=== PATIENT | male | born 1945 | race Caucasian/White ===

== ENCOUNTER 2021-11-22 13:09 | Inpatient (IN) | payer MEDICARE ==
[~2021-11-22] VITALS: Ht 170.2 cm; Wt 63.6 kg
[2021-11-22] MEDS ORDERED: CVS2500C PO (14:04)
[2021-11-22] MEDS ORDERED: MULT-90 PO (14:04)
[2021-11-22] MEDS ORDERED: LOSA100T45 PO (14:04)
[2021-11-22] MEDS ORDERED: DOXY-350 PO (14:04)
[2021-11-22] MEDS ORDERED: ECOT81TA5 PO (14:04)
[2021-11-22] MEDS ORDERED: D3 S20002 PO (14:04)
[2021-11-22 14:20] LABS: BASO % 0.2 % (0.0-1.0); EOS # 0.1 10^3/uL (0.0-0.5); EOS % 2.3 % (0.0-3.0); HEMATOCRIT 27.6 % (42.0-52.0); HEMOGLOBIN 10.2 g/dl (13.5-17.5); LYMPH # 1.2 10^3/uL (1.5-5.0); LYMPH % 27.5 % (24.0-44.0); MEAN CORPUSCULAR HEMOGLOBIN 39.4 pg (27.0-33.0); MEAN CORPUSCULAR VOLUME 106.6 fl (80.0-96.0); MONO # 0.7 10^3/uL (0.0-0.8); MONO % 15.1 % (2.0-8.0); NEUTROPHILS # 2.4 10^3/uL (1.5-8.5); NEUTROPHILS % 54.7 % (36.0-66.0); PLATELET COUNT, AUTOMATED 110 10^3/uL (150-450); RED BLOOD COUNT 2.59 10^6/uL (4.30-6.10); WHITE BLOOD COUNT 4.4 10^3/uL (4.0-10.0)
[2021-11-22 14:53] LABS: BLOOD UREA NITROGEN 5 MG/DL (7-18); CALCIUM LEVEL 9.1 MG/DL (8.8-10.2); CARBON DIOXIDE LEVEL 24 MEQ/L (21-32); CHLORIDE LEVEL 83 MEQ/L (98-107); CREATININE FOR GFR 0.67 MG/DL (0.70-1.30); GLOMERULAR FILTRATION RATE > 60.0 (>42); GLUCOSE, FASTING 96 MG/DL (70-100); POTASSIUM SERUM 3.5 MEQ/L (3.5-5.1)
[2021-11-22 14:55] LABS: SODIUM LEVEL 117 MEQ/L (136-145)
[2021-11-22 15:20] LABS: OSMOLALITY SERUM 237 MOSM/KG (280-301)
[2021-11-22] MEDS ORDERED: NS 1,000 ML IV SCH ×2 (15:20→18:45)
[2021-11-22 15:35] LABS: FREE T4 1.27 NG/DL (0.76-1.46); THYROID STIMULATING HORMONE 0.858 uIU/ML (0.358-3.740)
[2021-11-22 16:31] LABS: ETHYL ALCOHOL (ETHANOL) 0.004 % (0.000-0.010)
[2021-11-22 17:35] LABS: RSV AMPLIFICATION NEGATIVE (NEGATIVE)
[2021-11-22 18:01] LABS: CREATININE,RANDOM URINE 34.6 MG/DL
[2021-11-22] MEDS ORDERED: HOME MED LIST COMPLETE! XX SCH (18:35)
[2021-11-22] MEDS ORDERED: ACETAMINOPHEN TAB 650MG DOSE (2X325MG) PO PRN (18:45)
[2021-11-22 18:58] LABS: INR 1.1; PROTHROMBIN TIME 14.6 SECONDS (12.7-14.5)
[2021-11-22 18:59] LABS: PARTIAL THROMBOPLASTIN TIME 37.5 SECONDS (25.9-37.0)
[2021-11-22 19:47] LABS: ALBUMIN 3.2 GM/DL (3.2-5.2); ALT/SGPT 22 U/L (12-78); BILIRUBIN,DIRECT 0.4 MG/DL (0.0-0.2); FERRITIN 1063 NG/ML (26-388); FOLATE > 24.0 NG/ML; IRON (FE) 155 UG/DL (65-175); PERCENT SATURATION 63.5 % (19.7-50.0); TOTAL IRON BINDING CAPACITY 244 UG/DL (250-450); TOTAL PROTEIN 6.1 GM/DL (6.4-8.2); VITAMIN B12 LEVEL 1714 PG/ML
[2021-11-22 20:25] LABS: NT-PRO BNP 1758 PG/ML (<450)
[2021-11-22] MEDS: DOXYCYCLINE HYCLATE 100MG TABLET PO SCH (20:30)
[2021-11-22 21:36] VITALS: BP 168/82
[2021-11-22] MEDS ORDERED: LORazepam 2 MG TAB PO PRN (22:20)
[2021-11-22] MEDS: SODIUM CHLORIDE 1 GM TAB PO SCH (23:09)
[2021-11-22 23:40] VITALS: BP 136/74
[2021-11-23 00:22] LABS: BLOOD UREA NITROGEN 5 MG/DL (7-18); CALCIUM LEVEL 8.2 MG/DL (8.8-10.2); CARBON DIOXIDE LEVEL 27 MEQ/L (21-32); CHLORIDE LEVEL 83 MEQ/L (98-107); CREATININE FOR GFR 0.66 MG/DL (0.70-1.30); GLOMERULAR FILTRATION RATE > 60.0 (>42); GLUCOSE, FASTING 112 MG/DL (70-100); POTASSIUM SERUM 3.5 MEQ/L (3.5-5.1); SODIUM LEVEL 118 MEQ/L (136-145)
[2021-11-23 03:35] VITALS: BP 138/75
[2021-11-23] MEDS ORDERED: NS 1,000 ML IV SCH (05:05)
[2021-11-23 05:50] LABS: BLOOD UREA NITROGEN 5 MG/DL (7-18); CALCIUM LEVEL 7.9 MG/DL (8.8-10.2); CARBON DIOXIDE LEVEL 26 MEQ/L (21-32); CHLORIDE LEVEL 85 MEQ/L (98-107); CREATININE FOR GFR 0.49 MG/DL (0.70-1.30); GLOMERULAR FILTRATION RATE > 60.0 (>42); GLUCOSE, FASTING 82 MG/DL (70-100); POTASSIUM SERUM 3.2 MEQ/L (3.5-5.1); SODIUM LEVEL 120 MEQ/L (136-145)
[2021-11-23 08:00] VITALS: BP 152/88
[2021-11-23 09:00] VITALS: BP 163/74
[2021-11-23] MEDS: DOXYCYCLINE HYCLATE 100MG TABLET PO SCH ×2 (09:13→22:26)
[2021-11-23] MEDS: ASPIRIN 81MG ENTERIC TABLET PO SCH (09:13)
[2021-11-23] MEDS: ENOXAPARIN 40MG/0.4ML SYRINGE (J1650 PER 10MG) SC SCH (09:13)
[2021-11-23] MEDS: SODIUM CHLORIDE 1 GM TAB PO SCH ×3 (09:13→22:26)
[2021-11-23] MEDS: LOSARTAN 50MG TABLET PO SCH (09:14)
[2021-11-23] MEDS: POTASSIUM CHLORIDE 10MEQ SR TABLET PO SCH ×2 (10:29→22:26)
[2021-11-23 12:00] VITALS: BP 138/68
[2021-11-23 13:03] LABS: BLOOD UREA NITROGEN 5 MG/DL (7-18); CALCIUM LEVEL 8.2 MG/DL (8.8-10.2); CARBON DIOXIDE LEVEL 27 MEQ/L (21-32); CHLORIDE LEVEL 87 MEQ/L (98-107); GLOMERULAR FILTRATION RATE > 60.0 (>42); GLUCOSE, FASTING 93 MG/DL (70-100); POTASSIUM SERUM 3.9 MEQ/L (3.5-5.1); SODIUM LEVEL 121 MEQ/L (136-145)
[2021-11-23 13:47] LABS: OSMOLALITY URINE 275 MOSM/KG (50-1400)
[2021-11-23 13:56] LABS: SODIUM,RANDOM URINE 85 MEQ/L
[2021-11-23 16:00] VITALS: BP 130/79
[2021-11-23 17:59] LABS: BLOOD UREA NITROGEN 7 MG/DL (7-18); CALCIUM LEVEL 8.7 MG/DL (8.8-10.2); CARBON DIOXIDE LEVEL 25 MEQ/L (21-32); CHLORIDE LEVEL 89 MEQ/L (98-107); CREATININE FOR GFR 0.69 MG/DL (0.70-1.30); GLOMERULAR FILTRATION RATE > 60.0 (>42); GLUCOSE, FASTING 76 MG/DL (70-100); POTASSIUM SERUM 3.5 MEQ/L (3.5-5.1); SODIUM LEVEL 122 MEQ/L (136-145)
[2021-11-23 20:14] VITALS: BP 132/65
[2021-11-24 00:34] VITALS: BP 148/77
[2021-11-24 00:41] LABS: BLOOD UREA NITROGEN 7 MG/DL (7-18); CALCIUM LEVEL 8.2 MG/DL (8.8-10.2); CARBON DIOXIDE LEVEL 26 MEQ/L (21-32); CHLORIDE LEVEL 92 MEQ/L (98-107); CREATININE FOR GFR 0.55 MG/DL (0.70-1.30); GLOMERULAR FILTRATION RATE > 60.0 (>42); GLUCOSE, FASTING 93 MG/DL (70-100); POTASSIUM SERUM 3.5 MEQ/L (3.5-5.1); SODIUM LEVEL 123 MEQ/L (136-145)
[2021-11-24 03:57] VITALS: BP 153/77
[2021-11-24 05:05] LABS: HEMATOCRIT 26.1 % (42.0-52.0); HEMOGLOBIN 9.7 g/dl (13.5-17.5); MEAN CORPUSCULAR HEMOGLOBIN 38.3 pg (27.0-33.0); MEAN CORPUSCULAR VOLUME 103.2 fl (80.0-96.0); PLATELET COUNT, AUTOMATED 109 10^3/uL (150-450); RED BLOOD COUNT 2.53 10^6/uL (4.30-6.10); WHITE BLOOD COUNT 3.9 10^3/uL (4.0-10.0)
[2021-11-24 05:07] LABS: MEAN CORPUSCULAR HGB CONC 37.2 g/dl (32.0-36.5)
[2021-11-24 05:37] LABS: BLOOD UREA NITROGEN 6 MG/DL (7-18); CALCIUM LEVEL 8.1 MG/DL (8.8-10.2); CARBON DIOXIDE LEVEL 23 MEQ/L (21-32); CHLORIDE LEVEL 93 MEQ/L (98-107); GLOMERULAR FILTRATION RATE > 60.0 (>42); GLUCOSE, FASTING 83 MG/DL (70-100); MAGNESIUM LEVEL 1.2 MG/DL (1.8-2.4); POTASSIUM SERUM 4.2 MEQ/L (3.5-5.1); SODIUM LEVEL 125 MEQ/L (136-145)
[2021-11-24 08:03] VITALS: BP 152/76
[2021-11-24] MEDS: DOXYCYCLINE HYCLATE 100MG TABLET PO SCH ×2 (08:26→21:33)
[2021-11-24] MEDS: ASPIRIN 81MG ENTERIC TABLET PO SCH (08:26)
[2021-11-24] MEDS: ENOXAPARIN 40MG/0.4ML SYRINGE (J1650 PER 10MG) SC SCH (08:27)
[2021-11-24] MEDS: POTASSIUM CHLORIDE 10MEQ SR TABLET PO SCH ×2 (08:27→21:33)
[2021-11-24] MEDS: LOSARTAN 50MG TABLET PO SCH (08:27)
[2021-11-24] MEDS: SODIUM CHLORIDE 1 GM TAB PO SCH ×3 (08:27→21:33)
[2021-11-24] MEDS: MAG SULF 1GM/100ML (MAG RUN) 1 GM in IV 1 EA IV SCH ×2 (09:38→10:43)
[2021-11-24 12:01] VITALS: BP 150/70
[2021-11-24 12:13] LABS: OSMOLALITY URINE 394 MOSM/KG (50-1400)
[2021-11-24 12:28] LABS: SODIUM,RANDOM URINE 95 MEQ/L
[2021-11-24 12:51] LABS: BLOOD UREA NITROGEN 5 MG/DL (7-18); CALCIUM LEVEL 8.8 MG/DL (8.8-10.2); CARBON DIOXIDE LEVEL 25 MEQ/L (21-32); CHLORIDE LEVEL 93 MEQ/L (98-107); CREATININE FOR GFR 0.63 MG/DL (0.70-1.30); GLOMERULAR FILTRATION RATE > 60.0 (>42); GLUCOSE, FASTING 110 MG/DL (70-100); SODIUM LEVEL 126 MEQ/L (136-145)
[2021-11-24 16:18] VITALS: BP 150/68
[2021-11-24 19:02] VITALS: BP 112/70
[2021-11-24 19:06] LABS: BLOOD UREA NITROGEN 9 MG/DL (7-18); CALCIUM LEVEL 8.6 MG/DL (8.8-10.2); CARBON DIOXIDE LEVEL 25 MEQ/L (21-32); CHLORIDE LEVEL 96 MEQ/L (98-107); CREATININE FOR GFR 0.72 MG/DL (0.70-1.30); GLOMERULAR FILTRATION RATE > 60.0 (>42); GLUCOSE, FASTING 102 MG/DL (70-100); POTASSIUM SERUM 4.1 MEQ/L (3.5-5.1); SODIUM LEVEL 128 MEQ/L (136-145)
[2021-11-24 19:27] LABS: ERYTHROCYTE SEDIMENTATION RATE 32 mm/hr (0-20)
[2021-11-25] VITALS: BP 145/87
[2021-11-25 01:12] LABS: BLOOD UREA NITROGEN 10 MG/DL (7-18); CALCIUM LEVEL 8.9 MG/DL (8.8-10.2); CARBON DIOXIDE LEVEL 27 MEQ/L (21-32); CHLORIDE LEVEL 96 MEQ/L (98-107); CREATININE FOR GFR 0.61 MG/DL (0.70-1.30); GLOMERULAR FILTRATION RATE > 60.0 (>42); GLUCOSE, FASTING 88 MG/DL (70-100); POTASSIUM SERUM 4.5 MEQ/L (3.5-5.1); SODIUM LEVEL 127 MEQ/L (136-145)
[2021-11-25 04:31] LABS: HEMATOCRIT 25.5 % (42.0-52.0); HEMOGLOBIN 9.4 g/dl (13.5-17.5); MEAN CORPUSCULAR HEMOGLOBIN 39.5 pg (27.0-33.0); MEAN CORPUSCULAR VOLUME 107.1 fl (80.0-96.0); PLATELET COUNT, AUTOMATED 117 10^3/uL (150-450); RED BLOOD COUNT 2.38 10^6/uL (4.30-6.10); WHITE BLOOD COUNT 4.6 10^3/uL (4.0-10.0)
[2021-11-25 04:41] LABS: MEAN CORPUSCULAR HGB CONC 36.9 g/dl (32.0-36.5)
[2021-11-25 04:48] LABS: BLOOD UREA NITROGEN 9 MG/DL (7-18); CALCIUM LEVEL 8.5 MG/DL (8.8-10.2); CARBON DIOXIDE LEVEL 24 MEQ/L (21-32); CHLORIDE LEVEL 97 MEQ/L (98-107); CREATININE FOR GFR 0.68 MG/DL (0.70-1.30); GLOMERULAR FILTRATION RATE > 60.0 (>42); GLUCOSE, FASTING 86 MG/DL (70-100); POTASSIUM SERUM 4.4 MEQ/L (3.5-5.1); SODIUM LEVEL 128 MEQ/L (136-145)
[2021-11-25 04:52] VITALS: BP 136/78
[2021-11-25 07:50] VITALS: BP 136/72
[2021-11-25] MEDS: POTASSIUM CHLORIDE 10MEQ SR TABLET PO SCH ×2 (08:23→20:10)
[2021-11-25] MEDS: ASPIRIN 81MG ENTERIC TABLET PO SCH (08:23)
[2021-11-25] MEDS: DOXYCYCLINE HYCLATE 100MG TABLET PO SCH (08:23)
[2021-11-25] MEDS: SODIUM CHLORIDE 1 GM TAB PO SCH ×3 (08:23→20:10)
[2021-11-25] MEDS: ENOXAPARIN 40MG/0.4ML SYRINGE (J1650 PER 10MG) SC SCH (08:24)
[2021-11-25] MEDS: LOSARTAN 50MG TABLET PO SCH (08:24)
[2021-11-25 12:43] LABS: BLOOD UREA NITROGEN 9 MG/DL (7-18); CALCIUM LEVEL 8.9 MG/DL (8.8-10.2); CARBON DIOXIDE LEVEL 26 MEQ/L (21-32); CHLORIDE LEVEL 98 MEQ/L (98-107); CREATININE FOR GFR 0.73 MG/DL (0.70-1.30); GLOMERULAR FILTRATION RATE > 60.0 (>42); GLUCOSE, FASTING 89 MG/DL (70-100); POTASSIUM SERUM 4.8 MEQ/L (3.5-5.1); SODIUM LEVEL 131 MEQ/L (136-145)
[2021-11-25] MEDS: FUROSEMIDE 10MG PER 1/2 TABLET PO SCH (14:31)
[2021-11-25 16:02] VITALS: BP 134/70
[2021-11-25 17:45] LABS: BLOOD UREA NITROGEN 12 MG/DL (7-18); CALCIUM LEVEL 8.9 MG/DL (8.8-10.2); CARBON DIOXIDE LEVEL 26 MEQ/L (21-32); CHLORIDE LEVEL 99 MEQ/L (98-107); CREATININE FOR GFR 0.73 MG/DL (0.70-1.30); GLOMERULAR FILTRATION RATE > 60.0 (>42); GLUCOSE, FASTING 108 MG/DL (70-100); POTASSIUM SERUM 4.5 MEQ/L (3.5-5.1); SODIUM LEVEL 130 MEQ/L (136-145)
[2021-11-25 20:17] VITALS: BP 166/99
[2021-11-25 20:50] VITALS: BP 156/93
[2021-11-26 06:00] VITALS: BP 157/92
[2021-11-26 07:48] LABS: HEMATOCRIT 29.7 % (42.0-52.0); HEMOGLOBIN 10.4 g/dl (13.5-17.5); MEAN CORPUSCULAR HEMOGLOBIN 38.8 pg (27.0-33.0); MEAN CORPUSCULAR VOLUME 110.8 fl (80.0-96.0); PLATELET COUNT, AUTOMATED 135 10^3/uL (150-450); RED BLOOD COUNT 2.68 10^6/uL (4.30-6.10); WHITE BLOOD COUNT 5.4 10^3/uL (4.0-10.0)
[2021-11-26] MEDS ORDERED: FURO20TA2 PO (07:54)
[2021-11-26] MEDS ORDERED: SODI1TAB6 PO (07:54)
[2021-11-26] MEDS ORDERED: POTA-136 PO (07:54)
[2021-11-26] MEDS: ENOXAPARIN 40MG/0.4ML SYRINGE (J1650 PER 10MG) SC SCH (09:00)
[2021-11-26] MEDS: POTASSIUM CHLORIDE 10MEQ SR TABLET PO SCH (09:11)
[2021-11-26 09:12] VITALS: BP 157/92
[2021-11-26] MEDS: ASPIRIN 81MG ENTERIC TABLET PO SCH (09:12)
[2021-11-26] MEDS: FUROSEMIDE 10MG PER 1/2 TABLET PO SCH (09:12)
[2021-11-26] MEDS: SODIUM CHLORIDE 1 GM TAB PO SCH (09:12)
[2021-11-26] MEDS: LOSARTAN 50MG TABLET PO SCH (09:12)
== END 2021-11-26 09:40 | disposition home or self-care (01) | DRG 644 ==
LOC: M ED 13:09 → M ED INP 18:41 → ENRESERV 19:47 → M PCU 21:30 → M MS5PR 11-25 20:44
PROVIDERS: ADMIT Family Medicine; ATTEND Family Medicine
DX: E22.2 Syndrome of inappropriate secretion of antidiuretic hormone (principal); J90 Pleural effusion, not elsewhere classified; A69.20 Lyme disease, unspecified; K76.6 Portal hypertension; J98.11 Atelectasis; I10 Essential (primary) hypertension; D69.6 Thrombocytopenia, unspecified; I34.0 Nonrheumatic mitral (valve) insufficiency; E78.5 Hyperlipidemia, unspecified; F10.20 Alcohol dependence, uncomplicated; D64.9 Anemia, unspecified; Z79.82 Long term (current) use of aspirin; Z79.899 Other long term (current) drug therapy

== ENCOUNTER → 2021-12-07 | Outpatient (REF) | payer MEDICARE ==
[~2021-12-07] MED LIST: CVS2500C PO; D3 S20002 PO; DOXY-350 PO; ECOT81TA5 PO; FURO20TA2 PO; LOSA100T45 PO; MULT-90 PO; POTA-136 PO; SODI1TAB6 PO
== END ==
LOC: M LAB REF 18:00
PROVIDERS: ATTEND Internal Medicine Nephrology
DX: E87.1 Hypo-osmolality and hyponatremia (principal)